=== PATIENT | female | born 1990 | race Caucasian/White ===

== ENCOUNTER → 2022-01-13 09:59 | Outpatient (RCR) | payer OTHER, SELFPAY ==
[2020-02-06 08:06] LABS: COVID-19 Test Negative (Negative)
[2020-02-18 11:20] LABS: COVID-19 Test Negative (Negative)
[2020-02-20 09:57] LABS: COVID-19 Test Negative (Negative)
[2020-02-27 09:54] LABS: COVID-19 Test Negative (Negative)
[2020-03-03 09:34] LABS: COVID-19 Test Negative (Negative); IDNOW Serial# 55D5AD1C
[2020-03-13 09:08] LABS: SARS-COV-2 PCR UMBRL Not Detected
[2020-03-21 11:54] LABS: SARS-COV-2 PCR UMBRL Not Detected
[2020-03-28 08:15] LABS: SARS-COV-2 PCR UMBRL Not Detected
[2020-04-05 09:25] LABS: SARS-COV-2 PCR UMBRL Not Detected
[2020-04-12 13:33] LABS: SARS-COV-2 PCR UMBRL Not Detected
== END | disposition home or self-care (01) ==
LOC: HO.EMPCOV 02-06 07:39
PROVIDERS: Visit Provider Internal Medicine
DX: Z20.828 Contact with and (suspected) exposure to other viral communicable diseases (principal)
CPT/HCPCS: 36415; 87635; C9803; U0003